=== PATIENT | female | born 1935 | race Caucasian/White ===

== ENCOUNTER 2018-07-28 16:43 | Inpatient (IN) | payer MEDICARE, OTHER ==
[~2018-07-28] VITALS: Ht 167.6 cm; Wt 55.3 kg
[2018-07-28] MEDS ORDERED: SERT25TA PO (17:36)
[2018-07-28] MEDS ORDERED: FLUT9.9S16 NS (17:36)
[2018-07-28] MEDS ORDERED: diphenhydrAMINE 50 MG/1 ML VIAL ONE (17:51)
[2018-07-28] MEDS ORDERED: LORAZEPAM 2 MG/1 ML VIAL ONE ×2 (17:52→20:01)
[2018-07-28 18:00] LABS: *BILIRUBIN,URIN NEGATIVE (NEGATIVE); *BLOOD, URINE Trace-intact (NEGATIVE); *CLARITY,URINE SLIGHTLY CLOUDY (CLEAR); *COLOR,URINE YELLOW (YELLOW); *KETONES,URINE TRACE (NEGATIVE); *PROTEIN,URINE NEGATIVE (NEGATIVE); *UROBILINOGEN,URINE 0.2 E.U./dl (NORMAL); LEUKOCYTE ESTERASE ,URINE 1+ (NEGATIVE); NITRITE, URINE NEGATIVE (NEGATIVE); PH,URINE 5.5 (5.0-8.0); UGLUCOSE NEGATIVE (NEGATIVE)
[2018-07-28] MEDS ORDERED: LORAZEPAM 2 MG/1 ML VIAL IM ONE ×2 (18:00→20:15)
[2018-07-28] MEDS ORDERED: diphenhydrAMINE 50 MG/1 ML VIAL IM ONE (18:00)
[2018-07-28 18:04] LABS: *AMPHETAMINE, URINE NEGATIVE (NEGATIVE); *BARBITURATE, URINE NEGATIVE (NEGATIVE); *CANNABINOID, URINE NEGATIVE (NEGATIVE); *COCCAINE, URINE NEGATIVE (NEGATIVE); *OPIATE, URINE NEGATIVE (NEGATIVE); *PHENCYCLIDINE SCREEN,URINE NEGATIVE (NEGATIVE); BACTERIA,URINE FEW /HPF (NONE SEEN); SQUAMOUS EPITHELIAL CELL,UR MODERATE /HPF (NONE SEEN); WBC,URINE 20-50 /HPF (0-3)
[2018-07-28] MEDS ORDERED: CEPHALEXIN MONOHYDRATE 250 MG CAPSULE PO ONE (18:30)
[2018-07-28] MEDS ORDERED: CEPHALEXIN MONOHYDRATE 250 MG CAPSULE ONE (18:47)
[2018-07-28 19:00] LABS: BASOPHILS # (AUTO) 0.1 K/uL (0.0-8.0); BASOPHILS % (AUTO) 1.3 % (0.0-2.0); EOSINOPHILS # (AUTO) 0.1 K/uL (0.0-0.7); EOSINOPHILS % (AUTO) 1.9 % (0.0-7.0); HEMOGLOBIN 14.2 g/dL (10.9-14.3); LYMPHOCYTES # (AUTO) 1.2 K/uL (20.0-40.0); MEAN CORPUSCULAR HEMOGLOBIN 32.2 uug (24.7-32.8); MEAN CORPUSCULAR HGB CONC 35 g/dL (32.3-35.6); MONOCYTES # (AUTO) 0.4 K/uL (2.0-10.0); MONOCYTES % (AUTO) 8.9 % (0.0-11.0); NEUTROPHILS # (AUTO) 2.4 K/uL (1.8-8.9); NEUTROPHILS % (AUTO) 57.9 % (38.5-71.5); PLATELET COUNT (AUTO) 174 K/uL (179-408); WHITE BLOOD COUNT (AUTO) 4.1 K/uL (3.8-11.8)
[2018-07-28 19:14] LABS: CARBON DIOXIDE 25 mmol/L (21-32); CHLORIDE 108 mmol/L (98-107); CREATININE 0.8 mg/dL (0.6-1.3); ETHANOL < 3 MG/DL (0-0); GLUCOSE 131 mg/dL (74-106); UREA NITROGEN, BLOOD 24 mg/dL (7-18)
[2018-07-28] MEDS ORDERED: OLANZAPINE 10 MG VIAL IM ONE ×2 (19:15→19:18)
[2018-07-28 19:22] LABS: THYROID STIMULATING HORMONE 1.909 mIU/mL (0.358-3.740)
[2018-07-28 19:28] LABS: ALANINE AMINOTRANSFERASE 19 U/L (14-59); ALKALINE PHOSPHATASE 91 U/L (50-136); ASPARTATE AMINOTRANSFERASE 17 U/L (15-37); BILIRUBIN,DIRECT 0.1 mg/dL (0.0-0.2); BILIRUBIN,TOTAL 0.6 mg/dL (0.2-1.0); TOTAL PROTEIN, SERUM 7.8 g/dL (6.4-8.2)
[2018-07-28] MEDS ORDERED: MAG HYDROX/AL HYDROX/SIMETH 30 ML LIQUID UDC PO PRN (22:15)
[2018-07-28] MEDS ORDERED: TEMAZEPAM 7.5 MG CAPSULE PO PRN (22:15)
[2018-07-28] MEDS ORDERED: MAGNESIUM HYDROXIDE 30 ML LIQUID UDC PO PRN (22:15)
[2018-07-28] MEDS ORDERED: LORAZEPAM 1 MG TABLET PO PRN (22:15)
[2018-07-28] MEDS ORDERED: ACETAMINOPHEN 325 MG TABLET PO PRN (22:15)
[2018-07-29 07:30] VITALS: BP 165/74
[2018-07-29 17:09] VITALS: BP 128/68
[2018-07-29] MEDS: CEPHALEXIN MONOHYDRATE 250 MG CAPSULE PO SCH (17:51)
[2018-07-29] MEDS: DIVALPROEX SPRINKLE 125 MG CAP.SPRINK PO SCH (20:11)
[2018-07-29 21:39] VITALS: BP 118/61
[2018-07-30] MEDS: SERTRALINE HCL 50 MG TABLET PO SCH (09:00)
[2018-07-30] MEDS: DIVALPROEX SPRINKLE 125 MG CAP.SPRINK PO SCH ×2 (09:00→21:02)
[2018-07-30] MEDS: CEPHALEXIN MONOHYDRATE 250 MG CAPSULE PO SCH ×2 (09:00→17:38)
[2018-07-30 16:03] VITALS: BP 114/60
[2018-07-30 21:49] VITALS: BP 121/61
[2018-07-31 07:30] VITALS: BP 136/51
[2018-07-31] MEDS: CEPHALEXIN MONOHYDRATE 250 MG CAPSULE PO SCH ×2 (09:10→17:14)
[2018-07-31] MEDS: SERTRALINE HCL 50 MG TABLET PO SCH (09:10)
[2018-07-31] MEDS: DIVALPROEX SPRINKLE 125 MG CAP.SPRINK PO SCH ×2 (09:10→21:00)
[2018-07-31 15:50] VITALS: BP 130/58
[2018-08-01 07:30] VITALS: BP 138/70
[2018-08-01] MEDS: SERTRALINE HCL 50 MG TABLET PO SCH (08:32)
[2018-08-01] MEDS: DIVALPROEX SPRINKLE 125 MG CAP.SPRINK PO SCH ×2 (08:32→20:16)
[2018-08-01] MEDS: CEPHALEXIN MONOHYDRATE 250 MG CAPSULE PO SCH ×2 (08:33→16:36)
[2018-08-01 15:28] VITALS: BP 158/61
[2018-08-01 21:12] VITALS: BP 130/46
[2018-08-02 08:00] VITALS: BP 136/80
[2018-08-02] MEDS: DIVALPROEX SPRINKLE 125 MG CAP.SPRINK PO SCH ×2 (08:22→21:00)
[2018-08-02] MEDS: SERTRALINE HCL 50 MG TABLET PO SCH (08:22)
[2018-08-02] MEDS: CEPHALEXIN MONOHYDRATE 250 MG CAPSULE PO SCH ×2 (08:22→17:00)
[2018-08-02 14:59] VITALS: BP 130/66
[2018-08-02 20:17] VITALS: BP 143/59
[2018-08-03 07:30] VITALS: BP 135/58
[2018-08-03 07:37] LABS: BASOPHILS # (AUTO) 0.1 K/uL (0.0-8.0); BASOPHILS % (AUTO) 2.3 % (0.0-2.0); EOSINOPHILS # (AUTO) 0.1 K/uL (0.0-0.7); EOSINOPHILS % (AUTO) 2.6 % (0.0-7.0); HEMATOCRIT 41.7 % (31.2-41.9); HEMOGLOBIN 14.2 g/dL (10.9-14.3); LYMPHOCYTES % (AUTO) 41.3 % (20.5-51.5); MEAN CORPUSCULAR HEMOGLOBIN 32.2 uug (24.7-32.8); MEAN CORPUSCULAR HGB CONC 34 g/dL (32.3-35.6); MEAN CORPUSCULAR VOLUME 94.5 fL (75.5-95.3); MONOCYTES # (AUTO) 0.5 K/uL (2.0-10.0); MONOCYTES % (AUTO) 10.1 % (0.0-11.0); NEUTROPHILS # (AUTO) 2.1 K/uL (1.8-8.9); NEUTROPHILS % (AUTO) 43.7 % (38.5-71.5); PLATELET COUNT (AUTO) 177 K/uL (179-408); RED BLOOD CELL COUNT(AUTO) 4.41 MIL/uL (3.63-4.92); WHITE BLOOD COUNT (AUTO) 4.8 K/uL (3.8-11.8)
[2018-08-03 07:48] LABS: CARBON DIOXIDE 26 mmol/L (21-32); CHLORIDE 103 mmol/L (98-107); CREATININE 0.6 mg/dL (0.6-1.3); GLUCOSE 85 mg/dL (74-106); POTASSIUM 4.1 mmol/L (3.5-5.1); UREA NITROGEN, BLOOD 23 mg/dL (7-18)
[2018-08-03] MEDS: DIVALPROEX SPRINKLE 125 MG CAP.SPRINK PO SCH (08:48)
[2018-08-03] MEDS: SERTRALINE HCL 50 MG TABLET PO SCH (08:49)
[2018-08-03] MEDS: CEPHALEXIN MONOHYDRATE 250 MG CAPSULE PO SCH ×2 (08:49→16:17)
[2018-08-03] MEDS: DIVALPROEX 250 MG TABLET.DR PO SCH (16:16)
[2018-08-03 16:40] VITALS: BP 146/53
[2018-08-03 20:00] VITALS: BP 154/58
[2018-08-03] MEDS: RIVASTIGMINE TARTRATE 1.5 MG CAPSULE PO SCH (20:55)
[2018-08-04 07:30] VITALS: BP 141/52
[2018-08-04] MEDS: DIVALPROEX 250 MG TABLET.DR PO SCH ×3 (08:20→17:03)
[2018-08-04] MEDS: RIVASTIGMINE TARTRATE 1.5 MG CAPSULE PO SCH ×2 (08:20→20:18)
[2018-08-04] MEDS: SERTRALINE HCL 50 MG TABLET PO SCH (08:20)
[2018-08-04] MEDS: CEPHALEXIN MONOHYDRATE 250 MG CAPSULE PO SCH ×2 (08:20→17:03)
[2018-08-04 16:53] VITALS: BP 149/53
[2018-08-05 07:30] VITALS: BP 140/51
[2018-08-05] MEDS: SERTRALINE HCL 50 MG TABLET PO SCH (08:26)
[2018-08-05] MEDS: DIVALPROEX 250 MG TABLET.DR PO SCH ×3 (08:26→16:43)
[2018-08-05] MEDS: RIVASTIGMINE TARTRATE 1.5 MG CAPSULE PO SCH ×2 (08:26→20:07)
[2018-08-05 15:20] VITALS: BP 132/50
[2018-08-05 20:15] VITALS: BP 136/52
[2018-08-06 07:30] VITALS: BP 130/59
[2018-08-06] MEDS: RIVASTIGMINE TARTRATE 1.5 MG CAPSULE PO SCH (08:34)
[2018-08-06] MEDS: DIVALPROEX 250 MG TABLET.DR PO SCH (08:35)
[2018-08-06] MEDS: SERTRALINE HCL 50 MG TABLET PO SCH (08:35)
== END 2018-08-06 11:30 | disposition home health service (06) | DRG 885 ==
LOC: ER 16:43 → GPS 21:39
PROVIDERS: ADMIT Psychiatry & Neurology Psychiatry; ATTEND Nurse Practitioner Acute Care
DX: F39 Unspecified mood [affective] disorder (principal); E43 Unspecified severe protein-calorie malnutrition; E11.65 Type 2 diabetes mellitus with hyperglycemia; N39.0 Urinary tract infection, site not specified; F03.91 Unspecified dementia, unspecified severity, with behavioral disturbance; Z68.1 Body mass index [BMI] 19.9 or less, adult; E86.0 Dehydration; Z91.83 Wandering in diseases classified elsewhere; E03.9 Hypothyroidism, unspecified; E78.5 Hyperlipidemia, unspecified; F10.20 Alcohol dependence, uncomplicated; Y90.0 Blood alcohol level of less than 20 mg/100 ml; D69.6 Thrombocytopenia, unspecified; F41.9 Anxiety disorder, unspecified
CPT/HCPCS: 36415; 70030-TC; 70450; 71045; 80164; 80307; 84443; 85025; 85730; 87086; 93005; 97116; 97530; A4663; G0480; J1200; J2060; J2358; J3490